=== PATIENT | male | born 2000 | race Two or more races ===

== ENCOUNTER 2020-06-19 10:39 | Outpatient (REF) | payer OTHER, SELFPAY | END 2020-06-19 10:40 | disposition home or self-care (01) | LOC: HO.LAB 10:39 | PROVIDERS: Visit Provider Internal Medicine | DX: Z20.828 Contact with and (suspected) exposure to other viral communicable diseases (principal) | CPT/HCPCS: 87635 ==

== ENCOUNTER 2020-07-17 17:26 | Outpatient (REF) | payer OTHER, SELFPAY | END 2020-07-17 17:27 | disposition home or self-care (01) | LOC: HO.LAB 17:26 | PROVIDERS: Visit Provider Internal Medicine | DX: Z20.828 Contact with and (suspected) exposure to other viral communicable diseases (principal) | CPT/HCPCS: C9803; U0003 ==

== ENCOUNTER 2020-07-31 14:23 | Emergency (ER) | payer OTHER, SELFPAY ==
--- NOTE | 2020-07-31 14:56 | PC.NURSE ---
pt not present in waiting room when called for triage
== END 2020-07-31 15:44 | disposition left against medical advice (07) ==
PROVIDERS: Emergency Provider Emergency Medicine
DX: R11.2 Nausea with vomiting, unspecified (principal)
CPT/HCPCS: 99281

== ENCOUNTER 2020-07-31 21:33 | Emergency (ER) | payer OTHER, SELFPAY ==
[2020-07-31 21:34] VITALS: BP 126/68; PULSE 84; RESP 16; TEMP 37; O2SAT 99; BMI 20.9
[2020-07-31 22:51] VITALS: BP 93/56; PULSE 65; RESP 16; TEMP 36.7; O2SAT 100
--- NOTE | 2020-07-31 23:20 | ED.GENADULT ---
HPI - General Adult General Chief complaint: Abdominal Pain Stated complaint: Abdominal pain Time Seen by Provider: 07/31/20 22:22 Source: patient Mode of arrival: ambulatory Limitations: no limitations History of Present Illness HPI narrative: patient comes to emergency room complaining of 3 weeks of vomiting. Patient states he is unable to tolerate p.o.. Patient states 3 weeks ago he tested positive for COVID. patient states that he was retested for COVID a few weeks later and he was negative for COVID. patient states that some point he did have abdominal pain within the last 3 weeks, however today he has not had any abdominal pain at all. Patient denies fever, no diarrhea. MD complaint: vomiting Related Data Previous Rx's Medication Instructions Recorded hyoscyamine sulfate 0.25 mg PO QID PRN #7 tab 08/01/20 ondansetron HCl [Zofran] 4 mg PO Q8H PRN #14 tab 08/01/20 Allergies Allergy/AdvReac Type Severity Reaction Status Date / Time No Known Allergies Allergy Unverified 05/11/20 17:45 Review of Systems Review of Systems: Constitutional : No Weight loss, No Fever, No Chills, No Night Sweats, No Fatigue, No Malaise ENT/Mouth : No Hearing loss, No Ear Pain, No Nasal Congestion, No Sinus Pain, No Hoarseness, No sore throat, No Rhinorrhea, No Swallowing Difficulty Eyes: No Eye Pain, No Swelling, No Redness, No Foreign Body, No Discharge, No Vision Changes Cardiovascular : No Chest Pain, No SOB, No Dyspnea on Exertion, No Orthopnea, No Edema, No Palpitations Respiratory : No Cough, No Sputum, No Wheezing, No Smoke Exposure, No Dyspnea Gastrointestinal : patient complaining of nausea and vomiting, No Diarrhea, No Constipation, No abdominal Pain, No Hematochezia, No Melena Genitourinary : no irregular bleeding, No Dysuria, No Urinary Frequency, No Hematuria, No Urinary Incontinence, No Urgency, No Flank Pain, No Urinary Flow Changes, No Hesitancy Musculoskeletal : No joint pain, No Myalgias, No Joint Swelling Skin : No Skin Lesions, No rash Neuro : No Weakness, No Numbness, No Paresthesias, No Loss of Consciousness, No Dizziness, No Headache Psych : No Anxiety/Panic, No Depression, No SI/HI/AH/VH, No Social Issues, Heme/Lymph: No Bruising, No Bleeding,No Lymphadenopathy Endocrine : No Polyuria, No Polydipsia, No Temperature Intolerance [facility] Past Medical History Medical History (Updated 08/01/20 @ 00:29 by Loraine Araya MD) No known health problems Social History Social History Alcohol intake: never Smoked in Last 30 Days: No Use of substances other than those prescribed or required for medical reasons: Yes Substance Use Type: Marijuana Substance Use Frequency: Daily Last Used Substance: Just Prior to Admission Any prior treatment program specific to substance use: No Advance Directives: No Advance Directives Information Provided: Yes Physical Exam Vital Signs: Vital Signs: Last Vital Signs Temp 98.0 F 07/31/20 22:51 Pulse 70 08/01/20 00:00 Resp 16 08/01/20 00:00 BP 120/61 08/01/20 00:00 Pulse Ox 99 08/01/20 00:00 Body Mass Index 20.9 Appearance: Alert. Oriented X3. No acute distress. Eyes: Pupils equal, round and reactive to light. ENT: Pharynx normal. Neck: Normal inspection. Neck supple. No lymph nodes noted. No crepitus CVS: Normal heart rate and rhythm. Pulses normal. Normal S1 and S2 Respiratory: No respiratory distress. Breath sounds normal. No Wheezing. No rales Abdomen: Soft and nontender. No rigidity. No distention. good BS x4 Skin: Skin warm and dry. Normal skin color. Normal skin turgor. Extremities: No lower extremity edema. No lower extremity edema. No Lacerations. No Rash Neuro: Oriented X 3. No motor deficit. No sensory deficit. Moving all extermities. No slurred speech. Course Course Course Narrative: patient's physical exam is within normal limits, patient looks well appearing, not having any nausea or actively vomiting at this time, no abdominal pain. I discussed the labs with the patient, patient will be discharged with nausea medication. on discharge physical exam patient is well-appearing, no abdominal pain, no tenderness, states that he does not need to urinate at this time and does not want to wait for the urine sample. Patient states he feels overall better with IV fluids and Zofran. Medical Decision Making Lab Data Result diagrams: 07/31/20 23:39 07/31/20 23:39 Labs: Lab Results 07/31/20 07/31/20 07/31/20 Range/Units 23:39 23:39 23:39 WBC 8.8 (4.8-10.8) X10*3/uL RBC 4.31 L (4.60-5.80) X10*6/uL Hgb 12.8 L (14.0-18.0) g/dl Hct 38.3 L (42-52) % MCV 88.9 (80-98) fL MCH 29.7 (27.0-33.0) pg MCHC 33.4 (31.0-36.0) g/dl RDW 12.2 (11.0-16.0) % Plt Count 182 (160-400) X10*3/uL MPV 11.1 (9.4-12.4) fL Immature Gran % (Auto) 0.1 (0.0-0.4) % Neut % (Auto) 47.9 (45-73) % Lymph % (Auto) 38.7 (20-40) % [place] % (Auto) 9.4 (2-11) % Eos % (Auto) 3.3 (0-4) % Baso % (Auto) 0.6 (0-2) % Lymph # (Auto) 3.4 (1.2-4.9) X10*3/uL [place] # (Auto) 0.8 (0.1-1.2) X10*3/uL Eos # (Auto) 0.3 (0.0-0.4) X10*3/uL Baso # (Auto) 0.1 (0.0-0.2) X10*3/uL Abs Immat Gran (auto) 0.01 (0.00-0.03) X10*3/uL Absolute Neuts (auto) 4.2 (2.0-8.3) X10*3/uL Absolute Nucleated RBC 0.000 (0.0-0.012) X10*3/uL Nucleated RBC % (auto) 0.0 (0.0-0.2) /100WBC Sodium 139 (135-145) mmol/L Potassium 4.1 (3.3-5.1) mmol/l Chloride 104 (96-108) mmol/L Carbon Dioxide 25 (22-29) mmol/L Anion Gap 14 (12-20) BUN 16 (9-16) mg/dL Creatinine 0.82 (0.5-1.4) mg/dL Estim Creat Clear Calc 117.8 Estimated GFR > 60 Random Glucose 103 (60-115) mg/dL Calcium 9.2 (8.4-10.2) mg/dL Total Bilirubin 0.2 (0.0-1.0) mg/dL Direct Bilirubin < 0.2 (0.0-0.5) mg/dL AST 36 (5-37) U/L ALT 40 (0-40) U/L Alkaline Phosphatase 78 (39-117) U/L Total Protein 6.8 (6.5-8.0) g/dL Albumin 4.2 (3.5-5.0) g/dL Lipase 17 (8-78) U/L Discharge Plan Discharge Clinical Impression: Vomiting Patient Disposition: Home, Self-Care Instructions: Acute Nausea and Vomiting (ED) Additional Instructions: Please follow-up with your primary care physician tomorrow. If you have any worsening or new symptoms, please return to the emergency room or call 911 Prescriptions: New ondansetron HCl [Zofran] 4 mg tablet 4 mg PO Q8H PRN (Reason: nausea and vomiting) Qty: 14 RF: 0 hyoscyamine sulfate 0.125 mg tablet 0.25 mg PO QID PRN (Reason: dyspepsia) Qty: 7 RF: 0
[2020-07-31] MEDS: 0.9 % Sodium Chloride 1,000 ML 999 ML IVCONT (23:41)
[2020-07-31] MEDS: ondansetron HCL 4 MG/2 ML VIAL IVPUSH (23:44)
[2020-07-31 23:47] LABS: Basophils Absolute Auto 0.1 X10*3/uL (0.0-0.2); Basophils Percent Auto 0.6 % (0-2); Eosinophils Absolute Auto 0.3 X10*3/uL (0.0-0.4); Eosinophils Percent Auto 3.3 % (0-4); Hematocrit 38.3 % (42-52); Hemoglobin 12.8 g/dl (14.0-18.0); Imm Gran Abs Auto 0.01 X10*3/uL (0.00-0.03); Imm Gran Pct Auto 0.1 % (0.0-0.4); Lymphocytes Absolute Auto 3.4 X10*3/uL (1.2-4.9); Lymphocytes Percent Auto 38.7 % (20-40); MANUAL DIFF FLAG NO; Mean Corpuscular HGB Conc 33.4 g/dl (31.0-36.0); Mean Corpuscular Hemoglobin 29.7 pg (27.0-33.0); Mean Corpuscular Volume 88.9 fL (80-98); Mean Platelet Volume 11.1 fL (9.4-12.4); Monocytes Absolute Auto 0.8 X10*3/uL (0.1-1.2); Monocytes Percent Auto 9.4 % (2-11); Neutrophils Absolute Auto 4.2 X10*3/uL (2.0-8.3); Neutrophils Percent Auto 47.9 % (45-73); Platelet Count 182 X10*3/uL (160-400); Red Blood Count 4.31 X10*6/uL (4.60-5.80); Red Cell Distribution Width 12.2 % (11.0-16.0); White Blood Count 8.8 X10*3/uL (4.8-10.8)
[2020-08-01] VITALS: BP 120/61; PULSE 70; RESP 16; O2SAT 99
--- NOTE | 2020-08-01 00:07 | PC.NURSE ---
PT STATES HE HAS NO PAIN OR N/V AT THIS TIME. PT STATES THE NAUSEA COMES IN WAVES.
[2020-08-01 00:08] LABS: Lipase 17 U/L (8-78)
[2020-08-01 00:11] LABS: Alanine Aminotransferase 40 U/L (0-40); Albumin Level 4.2 g/dL (3.5-5.0); Alkaline Phosphatase 78 U/L (39-117); Anion Gap 14 (12-20); Aspartate Amino Transferase 36 U/L (5-37); Bilirubin Direct < 0.2 mg/dL (0.0-0.5); Bilirubin Total 0.2 mg/dL (0.0-1.0); Blood Urea Nitrogen 16 mg/dL (9-16); Calcium 9.2 mg/dL (8.4-10.2); Carbon Dioxide 25 mmol/L (22-29); Chloride 104 mmol/L (96-108); Creatinine Clr Calc Pharmacy 117.8; Estimated Glomerular Filt Rate > 60; Glucose Random 103 mg/dL (60-115); Potassium 4.1 mmol/l (3.3-5.1); Sodium 139 mmol/L (135-145); Total Protein 6.8 g/dL (6.5-8.0)
== END 2020-08-01 01:19 | disposition home or self-care (01) ==
PROVIDERS: Emergency Provider Emergency Medicine
DX: R11.10 Vomiting, unspecified (principal)
CPT/HCPCS: 36415; 80048; 80076; 83690; 85025; 96361; 96374; 96375; 96376; 99284; J2405

== ENCOUNTER 2020-09-11 13:06 | Outpatient (REF) | payer OTHER, SELFPAY | END 2020-09-11 13:07 | disposition home or self-care (01) | LOC: HO.LAB 13:06 | PROVIDERS: Visit Provider Internal Medicine | DX: Z20.822 Contact with and (suspected) exposure to COVID-19 (principal) | CPT/HCPCS: 36415; C9803; U0003 ==

== ENCOUNTER 2020-10-04 15:38 | Outpatient (REF) | payer OTHER, SELFPAY | END 2020-10-04 15:39 | disposition home or self-care (01) | LOC: HO.LAB 15:38 | PROVIDERS: Visit Provider Internal Medicine | DX: Z20.822 Contact with and (suspected) exposure to COVID-19 (principal) | CPT/HCPCS: 36415; C9803; U0003; U0005 ==

== ENCOUNTER 2020-10-28 21:45 | Emergency (ER) | payer OTHER, SELFPAY ==
--- NOTE | 2020-10-28 22:18 | ED_ITS ---
HPI - General Adult General Chief complaint: Nausea/Vomiting/Diarrhea Stated complaint: DEHYDRATION Time Seen by Provider: 10/28/20 22:18 Source: patient Mode of arrival: ambulatory Limitations: no limitations History of Present Illness HPI narrative: Patient history of substance abuse was using oxycodone now is on Suboxone since started Suboxone patient been nauseated vomited 3 times today no active vomiting in the ER no suicidal ideation no significant depression no significant abdominal pain no fever or chills no diarrhea Onset (ago): day(s) (2) Related Data Previous Rx's Medication Instructions Recorded hyoscyamine sulfate 0.25 mg PO QID PRN #7 tab 08/01/20 ondansetron HCl [Zofran] 4 mg PO Q8H PRN #14 tab 08/01/20 Allergies Allergy/AdvReac Type Severity Reaction Status Date / Time No Known Allergies Allergy Verified 10/28/20 22:26 Review of Systems Review of Systems: Yes all other systems are reviewed and are negative PMFSH Past Medical History Medical History No known health problems Opiate addiction Social History Social History Alcohol intake: never Substance Use Type: Marijuana Advance Directives: No Physical Exam Vital Signs: Vital Signs: Last Vital Signs Temp 98.3 F 10/28/20 22:26 Pulse 98 10/28/20 22:26 Resp 18 10/28/20 22:26 BP 117/90 H 10/28/20 22:26 Pulse Ox 98 10/28/20 22:26 Body Mass Index 18.7 Appearance: Alert. Oriented X3. No acute distress. Anxious no active vomiting Eyes: Pupils equal, round and reactive to light. ENT: Pharynx normal. Neck: Normal inspection. Neck supple. CVS: Normal heart rate and rhythm. Pulses normal. Respiratory: No respiratory distress. Breath sounds normal. Abdomen: Soft mild epigastric tenderness Bowel sounds are present, no mass palpable, no CVA tenderness Skin: Skin warm and dry. Normal skin color. Normal skin turgor. Extremities: No lower extremity edema. Neuro: Oriented X 3. No motor deficit. No sensory deficit. Medical Decision Making [facility] Narrative Medical decision making narrative: Patient with history of substance abuse on Suboxone complaining nausea and vomiting no active vomiting in the ER patient had p.o. fluids without significant discomfort will give him Jose Rodriges advised to follow-up with PCP if problem continues Discharge Plan Discharge Clinical Impression: Vomiting Qualifiers: Vomiting type: unspecified Vomiting Intractability: non-intractable Nausea presence: with nausea Qualified Code(s): R11.2 - Nausea with vomiting, unspecif ied Patient Disposition: Home, Self-Care Instructions: Acute Nausea and Vomiting (ED) Additional Instructions: Drink plenty of fluids and follow up with [facility] Prescriptions: No Action ondansetron HCl [Zofran] 4 mg tablet 4 mg PO Q8H PRN (Reason: nausea and vomiting) Qty: 14 RF: 0 hyoscyamine sulfate 0.125 mg tablet 0.25 mg PO QID PRN (Reason: dyspepsia) Qty: 7 RF: 0
[2020-10-28 22:26] VITALS: BP 117/90; PULSE 98; RESP 18; TEMP 36.8; O2SAT 98; BMI 18.7
[2020-10-28] MEDS: Omeprazole 40 MG CAPSULE.DR PO (23:38)
[2020-10-28] MEDS: Magnesium Hydrox/Alum Hydrox 30 ML ORAL.SUSP PO (23:38)
== END 2020-10-29 00:17 | disposition home or self-care (01) ==
PROVIDERS: Emergency Provider Internal Medicine
DX: E86.0 Dehydration (principal); R11.2 Nausea with vomiting, unspecified; Z79.899 Other long term (current) drug therapy
CPT/HCPCS: 99284

== ENCOUNTER → 2020-10-30 11:53 | Outpatient (BNVA) | payer OTHER, SELFPAY | PROVIDERS: Visit Provider Internal Medicine | DX: F11.99 Opioid use, unspecified with unspecified opioid-induced disorder (principal); Z79.899 Other long term (current) drug therapy | CPT/HCPCS: 80305; 99202 ==

== ENCOUNTER → 2020-11-07 13:13 | Outpatient (BNVA) | payer OTHER, SELFPAY | PROVIDERS: Visit Provider Internal Medicine | DX: F11.99 Opioid use, unspecified with unspecified opioid-induced disorder (principal); Z79.899 Other long term (current) drug therapy | CPT/HCPCS: 80305; 99211 ==

== ENCOUNTER → 2020-11-14 13:16 | Outpatient (BNVA) | payer OTHER, SELFPAY | PROVIDERS: Visit Provider Internal Medicine | DX: Z51.81 Encounter for therapeutic drug level monitoring (principal) | CPT/HCPCS: 80305; 99211 ==

== ENCOUNTER → 2020-11-21 14:02 | Outpatient (BNVA) | payer OTHER, SELFPAY | PROVIDERS: Visit Provider Internal Medicine | DX: F11.99 Opioid use, unspecified with unspecified opioid-induced disorder (principal) | CPT/HCPCS: 99211 ==

== ENCOUNTER → 2020-11-29 11:18 | Outpatient (BNVA) | payer OTHER, SELFPAY | PROVIDERS: Visit Provider Internal Medicine | DX: Z51.81 Encounter for therapeutic drug level monitoring (principal); Z79.899 Other long term (current) drug therapy | CPT/HCPCS: 80305; 99211 ==

== ENCOUNTER 2021-09-21 23:16 | Emergency (ER) | payer OTHER, SELFPAY ==
[2021-09-21 23:19] VITALS: BP 140/96; PULSE 88; RESP 20; TEMP 36.6; O2SAT 99; BMI 21.7
--- NOTE | 2021-09-21 23:21 | ED_ITS ---
HPI - Overdose General Chief Complaint: Overdose Stated Complaint: OD Time Seen by Provider: 09/21/21 23:19 Source: other (none) Mode of arrival: other (dropped off from a car then car left) Limitations: other (unresponsive) History of Present Illness MD complaint: accidental overdose Onset (ago): unknown Timing confirmed by: other (friend) Context: Accidental Overdose: wanted to get high and other (?oxycodone, ETOH) Treatments Prior to Arrival: none Related Data Previous Rx's Medication Instructions Recorded hyoscyamine sulfate 0.125 mg tablet 0.25 mg PO QID PRN #7 tab 08/01/20 ondansetron HCl 4 mg tablet 4 mg PO Q8H PRN #14 tab 08/01/20 (Zofran) buprenorphine 8 mg-naloxone 2 mg 2 film SUBLINGUAL DAILY 14 Days 11/29/20 sublingual film (Suboxone) #28 ea Allergies Allergy/AdvReac Type Severity Reaction Status Date / Time No Known Allergies Allergy Verified 09/21/21 23:24 Review of Systems Verdana 4l Review of Systems: Verdana 4d ROS unable to be obtained Verdana 4d due to patient being unresponsive Verdana 4d [facility] Past Medical History Attestation statement: The following information was validated with the patient. Medical History No known health problems Opiate addiction Opioid use disorder Social History Social History Alcohol intake: never Substance Use Type: Opiates Physical Exam Verdana 4l Vital Signs: Verdana 4d Verdana 4d Vital Signs: Verdana 4d Verdana 4Bd Last Vital Signs Verdana 4d Mems Engineer New 4d Mems Engineer New 4d Temp 97.8 F 09/21/21 23:19 Mems Engineer New 4d Pulse 81 09/22/21 00:50 Mems Engineer New 4d Resp 15 09/22/21 00:50 BP 129/90 H 09/22/21 00:50 Pulse Ox 99 09/22/21 00:50 Oxygen Flow Rate 15 09/21/21 23:19 BMI result Body Mass Index 21.7 Appearance: Pale diaphoretic apneic cyanotic unresponsive Eyes: pinpoint pupils ENT: depressed gag reflex Neck: Normal inspection. Neck supple. CVS: tachcyardic heart rate and rhythm. Pulses normal. Respiratory: apneic Abdomen: Soft and nontender. Skin: Skin cool and cyanotic pale skin color. Normal skin turgor. Extremities: No lower extremity edema. No calf ttp Neuro: unresponsive, no response to painful stimuli Course Course Course Narrative: awake alert GCS 15, observed for [address] to stay no longer [place] given narcan to go home with MDM - Overdose MDM Narrative Medical decision making narrative: 21 yo male with opiate abuse dropped off by friends in car who screamed from [employer] he overdose then left - brought from [facility] on stretcher he was given 8mg narcan IN I bagged him for 3 minutes until he pinked up and woke up initial O2 reading on the monitor was 98%, given 4mg IV zofran when he woke up. POC normal. He admits to getting high no SI. Hx of overdose in past. Immediately wanted to leave when he woke up. He is agitated with us. Mom waiting for the patient in triage. He is refusing all assistance at this time. He is agreeing to stay for observation but repeatedly stating he can leave at any time and that he is not in assisted. Critical Care Time Critical Care Time Critical Care Time: Yes Total Critical Care Time: 35 Attestation: IN narcan, repeat assessments, O2 supplementation, airway rescue I attest to this time spent taking care of the patient Discharge Plan Discharge Clinical Impression: Drug overdose Patient Disposition: Home, Self-Care Instructions: Adult Overdose (ED) Additional Instructions: return to ED for any worsening symptoms or concerns you refused all assistance in the emergency department for your overdose, you required 8mg of narcan which is two doses of rescue narcan Prescriptions: No Action buprenorphine-naloxone [Suboxone] 8-2 mg film 2 film sublingual DAILY 14 Days Qty: 28 0RF Rx Instructions: place 1 strip/tab under (each) side of tongue ondansetron HCl [Zofran] 4 mg tablet 4 mg PO Q8H PRN (Reason: nausea and vomiting) Qty: 14 0RF hyoscyamine sulfate 0.125 mg tablet 0.25 mg PO QID PRN (Reason: dyspepsia) Qty: 7 0RF
[2021-09-21] MEDS: Naloxone HCl Nasal 4 MG SPRAY NOSTRILALT ×2 (23:25)
[2021-09-21] MEDS: ondansetron HCL 4 MG/2 ML VIAL IVPUSH (23:25)
[2021-09-22 00:40] VITALS: BP 129/93; PULSE 90; RESP 18; O2SAT 97
--- NOTE | 2021-09-22 00:41 | PC.NURSE ---
Pt awake on stretcher in NAD, breathing with ease on RA, VSS. Pt speaking in complete clear sentences
[2021-09-22 00:50] VITALS: BP 129/90; PULSE 81; RESP 15; O2SAT 99
[2021-09-22] MEDS: Naloxone HCl Nasal TAKE HOME 4 MG SPRAY NOSTRILALT (00:59)
[2021-09-25 11:15] LABS: Glucose, Whole Blood 158 mg/dL (60-115)
== END 2021-09-22 01:14 | disposition home or self-care (01) ==
LOC: HO.ED 09-22 01:12
PROVIDERS: Emergency Provider Emergency Medicine
DX: T40.2X1A Poisoning by other opioids, accidental (unintentional), initial encounter (principal); R40.4 Transient alteration of awareness; Y92.810 Car as the place of occurrence of the external cause; F11.20 Opioid dependence, uncomplicated
CPT/HCPCS: 82947; 96374; 99283; 99291; J2405

== ENCOUNTER → 2022-06-14 11:46 | Outpatient (BNVA) | payer OTHER, SELFPAY | PROVIDERS: Visit Provider Nurse Practitioner Psychiatric/Mental Health | DX: F11.20 Opioid dependence, uncomplicated (principal) | CPT/HCPCS: 99212 ==

== ENCOUNTER 2023-01-12 14:51 | Emergency (ER) | payer MEDICAID, SELFPAY ==
--- NOTE | ~2023-01-12 | CT_ITS ---
EXAMINATION: CT ABDOMEN AND PELVIS WITH CONTRAST CLINICAL INFORMATION: 22-year-old male with right lower quadrant abdominal pain, rule out appendicitis COMPARISON: None available. TECHNIQUE: Multidetector volumetric images were obtained from the superior aspect of the liver through the pubic symphysis following administration 85 mL of Omnipaque 350 intravenous contrast. Sagittal and coronal reformatted images were obtained on the technologist's workstation. Oral contrast: No This CT examination was performed using dose optimization techniques as appropriate, variously including the following: *Automated exposure control *Adjustment of mA and/or kV according to patient size (this includes techniques or standardized protocols for targeted exams where dose is matched to indication/reason for exam; i.e. extremities or head) *Use of iterative reconstruction technique DLP: 382 mGy-cm FINDINGS: LUNG BASES: The visualized lung bases are unremarkable. LIVER, GALLBLADDER, AND BILIARY TREE: The liver is normal in size, shape, and attenuation. No focal hepatic lesion or biliary ductal dilatation is present. The gallbladder is unremarkable with no evidence of radiopaque gallstones, gallbladder wall thickening, or obvious pericholecystic inflammatory changes. PANCREAS: Unremarkable. SPLEEN: Unremarkable. ADRENAL GLANDS: Unremarkable. KIDNEYS AND URETERS: Right kidney is unremarkable. Left kidney demonstrate simple 3.4 cm cyst in the upper pole BLADDER: Unremarkable. GASTROINTESTINAL TRACT: The small and large bowel are unremarkable. The appendix is not clearly identified but there are no secondary signs of appendicitis ABDOMINAL WALL: No significant hernia is appreciated. LYMPH NODES: Normal. VASCULAR: Unremarkable. PELVIC VISCERA: Unremarkable. OSSEOUS STRUCTURES: Unremarkable. CT/CT abdomen pelvis w IV con IMPRESSION: No explanation for abdominal pain. No evidence of appendicitis. Simple cyst in the left kidney. Fleischner guidelines were followed.
[2023-01-12 15:18] VITALS: BP 123/77; BP 124/78; PULSE 100; PULSE 91; RESP 20; TEMP 36.6; O2SAT 100; O2SAT 98; BMI 26.0
--- NOTE | 2023-01-12 15:37 | PC.NURSE ---
Pt reporting he believes he has food poisoning, that his mom was her last night with the same thing, he believes it is from the burger he ate. Vomiting x1 day. Labs Obtained, IV placed. Awaiting provider at this time
[2023-01-12 15:38] LABS: Basophils Percent Auto 0.2 % (0-2); Eosinophils Percent Auto 0.2 % (0-4); Hematocrit 41.8 % (42.0-52.0); Hemoglobin 14.1 g/dl (14.0-18.0); Imm Gran Abs Auto 0.05 X10*3/uL (0.00-0.03); Imm Gran Pct Auto 0.3 % (0.0-0.4); Lymphocytes Absolute Auto 0.9 X10*3/uL (1.2-4.9); Lymphocytes Percent Auto 4.8 % (20-40); MANUAL DIFF FLAG SCAN; Mean Corpuscular HGB Conc 33.7 g/dl (31.0-36.0); Mean Corpuscular Hemoglobin 28.4 pg (27.0-33.0); Mean Corpuscular Volume 84.1 fL (80.0-98.0); Mean Platelet Volume 10.1 fL (9.4-12.4); Monocytes Absolute Auto 0.8 X10*3/uL (0.1-1.2); Monocytes Percent Auto 4.2 % (2-11); Neutrophils Absolute Auto 16.4 x10*3/uL (2.0-8.3); Neutrophils Percent Auto 90.3 % (45-73); Platelet Count 267 X10*3/uL (160-400); Red Blood Count 4.97 X10*6/uL (4.60-5.80); Red Cell Distribution Width 12.5 % (11.0-16.0); SCAN SMEAR FLAG 1; White Blood Count 18.2 X10*3/uL (4.8-10.8)
[2023-01-12 15:58] LABS: Alanine Aminotransferase 130 U/L (0-40); Albumin Level 4.5 g/dL (3.5-5.0); Alkaline Phosphatase 122 U/L (39-117); Anion Gap 14 (12-20); Aspartate Amino Transferase 54 U/L (5-37); Bilirubin Total 0.6 mg/dL (0.0-1.0); Blood Urea Nitrogen 18 mg/dL (9-16); Calcium 9.9 mg/dL (8.4-10.2); Carbon Dioxide 28 mmol/L (22-29); Chloride 102 mmol/L (96-108); Creatinine Clr Calc Pharmacy 125.3; Estimated Glomerular Filt Rate > 60; Glucose Random 117 mg/dL (60-115); Lipase 11 U/L (8-78); Potassium 4.2 mmol/L (3.3-5.1); SLIDE REVIEW VERIFIED; Sodium 140 mmol/L (135-145); Total Protein 7.6 g/dL (6.5-8.0)
--- NOTE | 2023-01-12 16:15 | ED.NAVMDI ---
HPI - Nausea/Vomiting/Diarrhea General Chief complaint: General Medical Stated complaint: NAUSEA,WEAKNESS PER EMS Time Seen by Provider: 01/12/23 16:14 Source: patient Mode of arrival: ambulatory Limitations: no limitations History of Present Illness HPI Narrative: Patient had burger at 21:00 last night went to bed was normal woke up in the morning with mid abdominal pain and vomiting , about 4-5 times, no diarrhea, pain is localized in mid abdomen with no radiation patient feels hungry no fever no chills patient mother had same food and she is also sick with same symptoms Related Data Previous Rx's Medication Instructions Recorded ondansetron 4 mg disintegrating 4 mg PO Q6-8H PRN nausea and 01/12/23 tablet vomiting #7 tabs Allergies Allergy/AdvReac Type Severity Reaction Status Date / Time No Known Allergies Allergy Verified 01/12/23 15:21 Review of Systems Review of Systems: Yes all other systems are reviewed and are negative [facility] Social History Social History Alcohol intake: never Smoked in Last 30 Days: No Use of substances other than those prescribed or required for medical reasons: Yes Substance Use Type: Marijuana Substance Use Frequency: Chronic Longstanding Advance Directives: No Advance Directives Information Provided: No Physical Exam Vital Signs: Vital Signs: Last Vital Signs Temp 97.9 F 01/12/23 15:18 Pulse 100 01/12/23 15:18 Resp 20 01/12/23 15:18 BP 123/77 01/12/23 15:18 Pulse Ox 98 01/12/23 15:18 O2 Del Method Room Air 01/12/23 15:18 BMI result Body Mass Index 26.0 Appearance: Alert. Oriented X3. No acute distress. Eyes: PERRLA, No Nystagmus ENT: Pharynx normal. Oral Mucosa dry Neck: Normal inspection. Neck supple. CVS: Normal heart rate and rhythm. Pulses normal. Respiratory: No respiratory distress. Equal air entry bilateral, no wheezing/rales/rhonchi Abdomen: Soft, tenderness at mid abdomen no tenderness in right lower quadrant. Bowel sounds are present, no mass palpable, no CVA tenderness Skin: Skin warm and dry. Normal skin color. Normal skin turgor. Extremities: No lower extremity edema. No calf tenderness Neuro: Oriented X 3. No motor deficit. No sensory deficit.No cerebellar signs , cranial nerves II-XII intact Medications Administered Discontinued Medications Generic Name Dose Route Start Last Admin Trade Name Kalen PRN Reason Stop Dose Admin Sodium Chloride 1,000 mls @ 999 mls/hr 01/12/23 16:44 01/12/23 18:11 Ns IV 01/12/23 17:44 Infused .Q1H1M ONE Infusion Iohexol 100 ml 01/12/23 17:05 01/12/23 17:06 Iohexol 350 Mg/Ml 100 Ml Infus..Btl IV 01/12/23 17:06 85 ml ONCE ONE Administration Ondansetron HCl 4 mg 01/12/23 16:44 01/12/23 16:55 Ondansetron Hcl 4 Mg/2 Ml Vial IVPUSH 01/12/23 16:45 4 mg ONCE ONE Administration Medical Decision Making Medical Decision Making [facility] Narrative: Patient has vomiting with mid abdominal pain likely food poisoning had leukocytosis will do CT scan to rule out appendicitis CT scan negative for acute pathology patient feeling much better now after IV fluids taking p.o. fluids will discharge patient home Differential Diagnosis Acute appendicitis/gastroenteritis Lab Data [facility] Lab Attestation statement: I reviewed the patient's lab results. 01/12/23 15:28 01/12/23 15:28 Labs: Lab Results 01/12/23 01/12/23 Range/Units 15:28 15:28 WBC 18.2 H (4.8-10.8) X10*3/uL RBC 4.97 (4.60-5.80) X10*6/uL Hgb 14.1 (14.0-18.0) g/dl Hct 41.8 L (42.0-52.0) % MCV 84.1 (80.0-98.0) fL MCH 28.4 (27.0-33.0) pg MCHC 33.7 (31.0-36.0) g/dl RDW 12.5 (11.0-16.0) % Plt Count 267 (160-400) X10*3/uL MPV 10.1 (9.4-12.4) fL Immature Gran % (Auto) 0.3 (0.0-0.4) % Neut % (Auto) 90.3 H (45-73) % Lymph % (Auto) 4.8 L (20-40) % [place] % (Auto) 4.2 (2-11) % Eos % (Auto) 0.2 (0-4) % Baso % (Auto) 0.2 (0-2) % Lymph # (Auto) 0.9 L (1.2-4.9) X10*3/uL [place] # (Auto) 0.8 (0.1-1.2) X10*3/uL Eos # (Auto) 0.0 (0.0-0.4) X10*3/uL Baso # (Auto) 0.0 (0.0-0.2) X10*3/uL Abs Immat Gran (auto) 0.05 H (0.00-0.03) X10*3/uL Absolute Neuts (auto) 16.4 H (2.0-8.3) x10*3/uL Absolute Nucleated RBC 0.000 (0.0-0.012) X10*3/uL Nucleated RBC % (auto) 0.0 (0.0-0.2) /100WBC Smear Tech's Comments VERIFIED Sodium 140 (135-145) mmol/L Potassium 4.2 (3.3-5.1) mmol/L Chloride 102 (96-108) mmol/L Carbon Dioxide 28 (22-29) mmol/L Anion Gap 14 (12-20) BUN 18 H (9-16) mg/dL Creatinine 0.82 (0.5-1.4) mg/dL Estim Creat Clear Calc 125.3 Estimated GFR > 60 Random Glucose 117 H (60-115) mg/dL Calcium 9.9 (8.4-10.2) mg/dL Total Bilirubin 0.6 (0.0-1.0) mg/dL AST 54 H (5-37) U/L ALT 130 H (0-40) U/L Alkaline Phosphatase 122 H (39-117) U/L Total Protein 7.6 (6.5-8.0) g/dL Albumin 4.5 (3.5-5.0) g/dL Lipase 11 (8-78) U/L Discharge Plan Discharge Clinical Impression: Acute gastroenteritis Patient Disposition: Home, Self-Care Instructions: Acute Nausea and Vomiting (ED) Additional Instructions: Drink plenty of fluids Meds for nausea/vomiting as prescribed Follow-up with PCP if not better Prescriptions: New ondansetron 4 mg tablet,disintegrating 4 mg PO Q6-8H PRN (Reason: nausea and vomiting) Qty: 7 0RF Interventions: ED Discharge Assessment Last Done: 01/12/23 19:22 Discharge Date/Time: 01/12/23 19:23
[2023-01-12] MEDS: ondansetron HCL 4 MG/2 ML VIAL IVPUSH (16:55)
[2023-01-12] MEDS: 0.9 % Sodium Chloride 1,000 ML 999 ML IV (16:56)
[2023-01-12] MEDS: iohexoL 350 MG/ML 100 ML INFUS..BTL IV (17:06)
== END 2023-01-12 19:23 | disposition home or self-care (01) ==
PROVIDERS: Emergency Provider Internal Medicine
DX: K52.9 Noninfective gastroenteritis and colitis, unspecified (principal); R11.2 Nausea with vomiting, unspecified; Z79.899 Other long term (current) drug therapy
CPT/HCPCS: 36415; 74177; 80053; 83690; 85025; 96361; 96374; 99284; J2405; Q9967

== ENCOUNTER 2023-03-02 10:24 | Emergency (ER) | payer MEDICAID, SELFPAY ==
[2023-03-02 10:34] VITALS: BP 126/91; PULSE 77; RESP 16; TEMP 36.9; O2SAT 99; BMI 25.8
--- NOTE | 2023-03-02 10:45 | ED.ABDPAIN ---
HPI - Abdominal Pain General Chief Complaint: Abdominal Pain Stated Complaint: Vomiting, sweating, weakness per EMS Time Seen by Provider: 03/02/23 10:36 Source: patient Mode of arrival: ambulatory Limitations: no limitations History of Present Illness HPI narrative: 22-year-old male came in for evaluation of nausea, vomiting, abdominal pain. Patient smokes marijuana daily woke up yesterday with nausea and vomiting with abdominal pain, this happen before several times if the patient does not eat before go to bed the night before, no diarrhea, passing normal flatus, unable to keep food or liquid down. Pain is diffuse to the whole abdomen mostly to the epigastric area, worsening by food no relieving factor. No history of intra-abdominal surgery. No fever, no chills. Related Data Previous Rx's Medication Instructions Recorded buprenorphine 8 mg-naloxone 2 mg 1 film sublingual DAILY #14 ea 06/14/22 sublingual film (Suboxone) naloxone 4 mg/actuation nasal 4 mg intranasal Q2M PRN opioid 06/14/22 spray (Narcan) overdose #2 ea ondansetron 4 mg disintegrating 4 mg PO Q6-8H PRN nausea and 01/12/23 tablet vomiting #7 tabs omeprazole 40 mg capsule,delayed 40 mg PO DAILY #14 caps 03/02/23 release ondansetron 4 mg disintegrating 4 mg PO Q8-12H PRN nausea and 03/02/23 tablet vomiting #7 tabs Allergies Allergy/AdvReac Type Severity Reaction Status Date / Time No Known Allergies Allergy Verified 01/13/23 08:01 Review of Systems Review of Systems All other systems are reviewed and are negative Constitutional: Reports as per HPI and Reports no additional constitutional complaints Eyes: Reports as per HPI and Reports no additional eye complaints Reports system reviewed and no additional complaints, except as documented Cardiovascular: Reports as per HPI and Reports no additional cardiovascular complaints Respiratory: Reports as per HPI and Reports no additional respiratory complaints Gastrointestinal: Reports as per HPI and Reports no additional gastrointestinal complaints Genitourinary: Reports no additional female genitourinary complaints Musculoskeletal: Reports no additional musculoskeletal complaints Skin/Breast: Reports system reviewed and no additional complaints, except as docu Psychiatric: Reports no additional psychiatric complaints Endocrine: Reports no additional endocrine complaints Hematologic/Lymphatic: Reports no additional hematologic/lymphatic complaints Allergic/Immunologic: Reports no additional allergic/immunologic complaints Reports system reviewed and no additional complaints, except as documented and Reports Abnormal speech present [facility] Past Medical History Medical History No known health problems Opiate addiction Opioid use disorder Social History Social History Alcohol intake: never Smoked in Last 30 Days: No Use of substances other than those prescribed or required for medical reasons: Yes Substance Use Type: Marijuana Substance Use Frequency: Daily Advance Directives: No Advance Directives Information Provided: No Physical Exam ED Vital Signs: Vital Signs - 24 hr 03/02/23 10:34 03/02/23 12:11 03/02/23 13:50 Temperature 98.5 F 98.3 F 98.3 F Pulse Rate 77 88 91 Respiratory Rate 16 21 H 16 Blood Pressure 126/91 H 128/70 120/71 Pulse Oximetry 99 98 Oxygen Delivery Method Room Air Room Air 03/02/23 13:52 03/02/23 14:00 Temperature 98.3 F 98.7 F Pulse Rate 77 100 Respiratory Rate 18 18 Blood Pressure 120/71 159/98 H Pulse Oximetry 98 98 Oxygen Delivery Method Room Air Room Air BMI result Body Mass Index 25.8 Vital signs have been reviewed as appeared to be correct. Blood pressure normal. Heart rate normal. Respiration rate normal. Temperature normal. Oxygen saturation normal. Appearance: Alert. Oriented X3. No acute distress. Head: Normal external exam. Normocephalic. Atraumatic. No Becerril signs noted. No raccoon eyes noted Eyes: PERRLA. EOMI. Conjunctiva and sclera normal. Eyelids normal. ENT: TM's Normal. Pharynx normal. Uvula midline. Moist mucous membranes. No trismus noted. No drooling noted. No muffled voice noted. Neck: Normal inspection. Neck supple. FROM. No adenopathy. Thyroid Normal. No meningeal signs. No neck mass noted. CVS: Normal heart rate and rhythm. Heart sound normal. No murmurs noted. Pulses normal throughout. Respiratory: No respiratory distress. Painless inspiration. Breath sounds normal. No wheezes/rales/rhonchi noted. Chest nontender. No accessory muscle usage noted or decreased air movement noted. Abdomen: Soft and nontender. Bowel sounds normal in all 4 quadrants. No distention noted. No organomegaly noted. No visible injury noted. Back: No CVA tenderness. Full range of motion noted. Skin: Skin warm and dry. Normal skin color. Normal skin turgor. No rashes/lesions/lacerations noted. Extremities: No lower extremity edema. Extremities exhibit normal range of motion. Extremities nontender. Neuro: Oriented X 3. Cranial nerve exam: II-XII are grossly intact No motor deficit. No sensory deficit. Reflexes normal. Course Course Course Narrative: 22-year-old male came in for intractable vomiting likely due to smoking marijuana, patient now feels better, able to tolerate p.o. intake, will discharge home on Zofran, Prilosec. Medical Decision Making Differential Diagnosis Differential Diagnoses: The differential diagnosis associated with the presentation includes (Colitis, diverticulitis, gastritis, gastroenteritis, electrolyte abnormalities, dehydration, severe anemia.) Admission/Observation Consideration of admission/observation: Escalation of care including admission/observation considered Lab Data MDM Lab Attestation statement: I reviewed the patient's lab results. 03/02/23 12:05 03/02/23 12:05 Labs: Lab Results 03/02/23 03/02/23 03/02/23 Range/Units 12:05 12:05 12:05 WBC 14.3 H (4.8-10.8) X10*3/uL RBC 5.29 (4.60-5.80) X10*6/uL Hgb 15.3 (14.0-18.0) g/dl Hct 45.2 (42.0-52.0) % MCV 85.4 (80.0-98.0) fL MCH 28.9 (27.0-33.0) pg MCHC 33.8 (31.0-36.0) g/dl RDW 12.5 (11.0-16.0) % Plt Count 284 (160-400) X10*3/uL MPV 10.3 (9.4-12.4) fL Immature Gran % (Auto) 0.2 (0.0-0.4) % Neut % (Auto) 86.0 H (45-73) % Lymph % (Auto) 10.0 L (20-40) % [place] % (Auto) 3.3 (2-11) % Eos % (Auto) 0.1 (0-4) % Baso % (Auto) 0.4 (0-2) % Lymph # (Auto) 1.4 (1.2-4.9) X10*3/uL [place] # (Auto) 0.5 (0.1-1.2) X10*3/uL Eos # (Auto) 0.0 (0.0-0.4) X10*3/uL Baso # (Auto) 0.1 (0.0-0.2) X10*3/uL Abs Immat Gran (auto) 0.03 (0.00-0.03) X10*3/uL Absolute Neuts (auto) 12.3 H (2.0-8.3) x10*3/uL Absolute Nucleated RBC 0.000 (0.0-0.012) X10*3/uL Nucleated RBC % (auto) 0.0 (0.0-0.2) /100WBC Sodium 138 138 (135-145) mmol/L Potassium 4.2 4.2 (3.3-5.1) mmol/L Chloride 102 102 (96-108) mmol/L Carbon Dioxide 27 25 (22-29) mmol/L Anion Gap 13 15 (12-20) BUN 19 H 18 H (9-16) mg/dL Creatinine 0.87 0.87 (0.5-1.4) mg/dL Estim Creat Clear Calc 118.1 118.1 Estimated GFR > 60 > 60 Random Glucose 103 104 (60-115) mg/dL Calcium 10.8 H D 10.8 H (8.4-10.2) mg/dL Total Bilirubin 0.6 (0.0-1.0) mg/dL Direct Bilirubin 0.2 (0.0-0.5) mg/dL AST 24 (5-37) U/L ALT 37 (0-40) U/L Alkaline Phosphatase 104 (39-117) U/L Total Protein 8.5 H (6.5-8.0) g/dL Albumin 4.9 (3.5-5.0) g/dL Lipase 7 L (8-78) U/L Independent Interpretation I performed an independent interpretation of an: CT Scan (Abdomen and pelvis: No acute intra-abdominal pathology.) Radiology Impression Discussion of test interpretation with radiology: I have reviewed the radiologist's reading. Medications Administered Discontinued Medications Generic Name Dose Route Start Last Admin Trade Name Freq PRN Reason Stop Dose Admin Famotidine 20 mg 03/02/23 10:42 03/02/23 12:06 Famotidine/Pf 20 Mg/2 Ml Vial IVPUSH 03/02/23 10:43 20 mg ONCE ONE Administration Sodium Chloride 1,000 mls @ 999 mls/hr 03/02/23 10:42 03/02/23 13:47 Ns IV 03/02/23 11:42 Infused .Q1H1M ONE Infusion Ketorolac Tromethamine 30 mg 03/02/23 10:45 03/02/23 12:06 Ketorolac Tromethamine 30 Mg/Ml Vial IVPUSH 03/02/23 10:46 30 mg ONCE ONE Administration Ondansetron HCl 4 mg 03/02/23 10:42 03/02/23 12:06 Ondansetron Hcl 4 Mg/2 Ml Vial IVPUSH 03/02/23 10:43 4 mg ONCE ONE Administration Ondansetron HCl 4 mg 03/02/23 14:39 03/02/23 14:44 Ondansetron Hcl 4 Mg/2 Ml Vial IVPUSH 03/02/23 14:40 4 mg ONCE ONE Administration Discharge Plan Discharge Clinical Impression: Acute vomiting, Cannabis abuse Patient Disposition: Home, Self-Care Instructions: Cannabis Abuse (ED) Additional Instructions: You are vomiting because using marijuana, to stop vomiting he needs to stop smoking marijuana. Start with clear food today avoid spicy and greasy food then advance as tolerated. Prescriptions: New ondansetron 4 mg tablet,disintegrating 4 mg PO Q8-12H PRN (Reason: nausea and vomiting) Qty: 7 0RF omeprazole 40 mg capsule,delayed release(DR/EC) 40 mg PO DAILY Qty: 14 0RF No Action ondansetron 4 mg tablet,disintegrating 4 mg PO Q6-8H PRN (Reason: nausea and vomiting) Qty: 7 0RF buprenorphine-naloxone [Suboxone] 8-2 mg film 1 film sublingual DAILY Qty: 14 0RF naloxone [Narcan] 4 mg/actuation spray,non-aerosol 4 mg intranasal Q2M PRN (Reason: opioid overdose) Qty: 2 0RF Rx Instructions: spray 1 dose into ONE nostril; alternate nostrils w each dose until help arrives
[2023-03-02 12:11] VITALS: BP 128/70; PULSE 88; RESP 21; TEMP 36.8; O2SAT 98
[2023-03-02 13:50] VITALS: BP 120/71; PULSE 91; RESP 16; TEMP 36.8
--- NOTE | 2023-03-02 13:51 | PC.NURSE ---
reports decrease in abdominal pain from 9 to 7. no vomiting. aox4. resting. fluids done
[2023-03-02 13:52] VITALS: BP 120/71; PULSE 77; RESP 18; TEMP 36.8; O2SAT 98
[2023-03-02 14:00] VITALS: BP 159/98; PULSE 100; RESP 18; TEMP 37.1; O2SAT 98
--- NOTE | 2023-03-02 14:47 | PC.NURSE ---
given zofran for nausea, given water/crackers- pt reports he would like to try to have them- md emolgy suggestion
== END 2023-03-02 16:02 | disposition home or self-care (01) ==
PROVIDERS: Emergency Provider Emergency Medicine
DX: R11.2 Nausea with vomiting, unspecified (principal); F12.19 Cannabis abuse with unspecified cannabis-induced disorder; R61 Generalized hyperhidrosis; R10.2 Pelvic and perineal pain; Z79.899 Other long term (current) drug therapy
CPT/HCPCS: 36415; 74176; 80048; 80076; 83690; 85025; 96361; 96374; 96375; 96376; 99284; J1885; J2405

== ENCOUNTER 2023-03-25 23:53 | Emergency (ER) | payer MEDICAID, SELFPAY ==
[2023-03-26] VITALS: BP 136/91; BP 142/96; PULSE 72; PULSE 96; RESP 14; TEMP 36.8; O2SAT 99; BMI 27.4
[2023-03-26 00:15] LABS: MANUAL DIFF FLAG NO
[2023-03-26 00:16] LABS: Basophils Percent Auto 0.3 % (0-2); Hemoglobin 15.3 g/dl (14.0-18.0); Imm Gran Abs Auto 0.05 X10*3/uL (0.00-0.03); Imm Gran Pct Auto 0.4 % (0.0-0.4); Lymphocytes Percent Auto 17.5 % (20-40); Mean Corpuscular HGB Conc 34.8 g/dl (31.0-36.0); Mean Corpuscular Volume 83.5 fL (80.0-98.0); Mean Platelet Volume 10.3 fL (9.4-12.4); Monocytes Absolute Auto 0.7 X10*3/uL (0.1-1.2); Monocytes Percent Auto 5.7 % (2-11); Neutrophils Absolute Auto 8.8 x10*3/uL (2.0-8.3); Neutrophils Percent Auto 76.1 % (45-73); Platelet Count 265 X10*3/uL (160-400); Red Blood Count 5.27 X10*6/uL (4.60-5.80); Red Cell Distribution Width 12.9 % (11.0-16.0); White Blood Count 11.5 X10*3/uL (4.8-10.8)
[2023-03-26 00:30] LABS: Alanine Aminotransferase 85 U/L (0-40); Alkaline Phosphatase 86 U/L (39-117); Anion Gap 19 (12-20); Aspartate Amino Transferase 33 U/L (5-37); Bilirubin Total 0.5 mg/dL (0.0-1.0); Blood Urea Nitrogen 24 mg/dL (9-16); Calcium 10.5 mg/dL (8.4-10.2); Carbon Dioxide 21 mmol/L (22-29); Chloride 102 mmol/L (96-108); Creatinine Clr Calc Pharmacy 137.4; Estimated Glomerular Filt Rate > 60; Glucose Random 124 mg/dL (60-115); IDNOW Serial# 6674DD1D; Lipase 6 U/L (8-78); Potassium 3.9 mmol/L (3.3-5.1); Sodium 138 mmol/L (135-145); Total Protein 8.6 g/dL (6.5-8.0)
[2023-03-26 00:31] LABS: COVID-19 Test Negative (Negative)
--- NOTE | 2023-03-26 00:40 | ED.NAVMDI ---
HPI - Nausea/Vomiting/Diarrhea General Chief complaint: Abdominal Pain Stated complaint: N/V Time Seen by Provider: 03/26/23 00:31 Source: patient Mode of arrival: EMS Limitations: no limitations History of Present Illness HPI Narrative: comes to the emergency room via ambulance complaining of nausea and vomiting. Patient admits to smoking marijuana. Patient has diffuse abdominal cramping, no significant pain. Patient states that he feels dehydrated. Denies using any other drugs. Related Data Previous Rx's Medication Instructions Recorded buprenorphine 8 mg-naloxone 2 mg 1 film sublingual DAILY #14 ea 06/14/22 sublingual film (Suboxone) naloxone 4 mg/actuation nasal 4 mg intranasal Q2M PRN opioid 06/14/22 spray (Narcan) overdose #2 ea ondansetron 4 mg disintegrating 4 mg PO Q6-8H PRN nausea and 01/12/23 tablet vomiting #7 tabs omeprazole 40 mg capsule,delayed 40 mg PO DAILY #14 caps 03/02/23 release ondansetron 4 mg disintegrating 4 mg PO Q8-12H PRN nausea and 03/02/23 tablet vomiting #7 tabs metoclopramide HCl 5 mg tablet 5 mg PO .b.i.d. PRN nausea and 03/26/23 (Reglan) vomiting #10 tabs Allergies Allergy/AdvReac Type Severity Reaction Status Date / Time No Known Allergies Allergy Verified 01/13/23 08:01 Review of Systems Review of Systems: Constitutional : No Weight loss, No Fever, No Chills, No Night Sweats, No Fatigue, No Malaise ENT/Mouth : No Hearing loss, No Ear Pain, No Nasal Congestion, No Sinus Pain, No Hoarseness, No sore throat, No Rhinorrhea, No Swallowing Difficulty Eyes: No Eye Pain, No Swelling, No Redness, No Foreign Body, No Discharge, No Vision Changes Cardiovascular : No Chest Pain, No SOB, No Dyspnea on Exertion, No Orthopnea, No Edema, No Palpitations Respiratory : No Cough, No Sputum, No Wheezing, No Smoke Exposure, No Dyspnea Gastrointestinal : Complaining of nausea vomiting, No Diarrhea, No Constipation, complaining of abdominal cramping, No Hematochezia, No Melena Genitourinary : no irregular bleeding, No Dysuria, No Urinary Frequency, No Hematuria, No Urinary Incontinence, No Urgency, No Flank Pain, No Urinary Flow Changes, No Hesitancy Musculoskeletal : No joint pain, No Myalgias, No Joint Swelling Skin : No Skin Lesions, No rash Neuro : No Weakness, No Numbness, No Paresthesias, No Loss of Consciousness, No Dizziness, No Headache Psych : No Anxiety/Panic, No Depression, No SI/HI/AH/VH, No Social Issues, Heme/Lymph: No Bruising, No Bleeding,No Lymphadenopathy Endocrine : No Polyuria, No Polydipsia, No Temperature Intolerance [facility] Past Medical History Medical History No known health problems Opiate addiction Opioid use disorder Social History Social History Alcohol intake: never Smoked in Last 30 Days: No Use of substances other than those prescribed or required for medical reasons: No Substance Use Type: Marijuana Advance Directives: No Advance Directives Information Provided: Yes Physical Exam Vital Signs: Vital Signs: Last Vital Signs Temp 98.4 F 03/26/23 01:02 Pulse 76 03/26/23 01:02 Resp 12 03/26/23 01:02 BP 120/76 03/26/23 01:02 Pulse Ox 100 03/26/23 01:02 O2 Del Method Room Air 03/26/23 01:02 BMI result Body Mass Index 27.4 Const: Other: Appearance: Alert. Oriented X3. No acute distress. Eyes: Pupils equal, round and reactive to light. ENT: Pharynx normal. Neck: Normal inspection. Neck supple. No lymph nodes noted. No crepitus CVS: Normal heart rate and rhythm. Pulses normal. Normal S1 and S2 Respiratory: No respiratory distress. Breath sounds normal. No Wheezing. No rales Abdomen: Soft and nontender. No rigidity. No distention. Skin: Skin warm and dry. Normal skin color. Normal skin turgor. Extremities: No lower extremity edema. No Lacerations. No Rash Neuro: Oriented X 3. No motor deficit. No sensory deficit. Moving all extremities. No slurred speech. CN 2 through 12 grossly intact Psych: calm, cooperative, normal affect Course Course Course Narrative: - patient receiving IV fluids, Reglan, Benadryl - on physical exam, patient did not have significant abdominal tenderness, imaging not indicated at this time. Medications Administered Discontinued Medications Generic Name Dose Route Start Last Admin Trade Name Kalen PRN Reason Stop Dose Admin Diphenhydramine HCl 50 mg 03/26/23 00:34 03/26/23 00:59 Diphenhydramine Hcl 50 Mg/Ml Vial IVPUSH 03/26/23 00:35 50 mg ONCE ONE Administration Sodium Chloride 1,000 mls @ 999 mls/hr 03/26/23 00:34 03/26/23 00:59 Ns IVCONT 03/26/23 01:34 999 mls/hr .Q1H1M ONE Administration Metoclopramide HCl 10 mg 03/26/23 00:34 03/26/23 00:59 Metoclopramide Hcl 10 Mg/2 Ml Vial IVPUSH 03/26/23 00:35 10 mg ONCE ONE Administration Medical Decision Making Medical Decision Making [facility] Narrative: - patient was p.o. challenged, feeling better, patient ready for discharge. Differential Diagnosis Differential Diagnoses: The differential diagnosis associated with the presentation includes ( Cyclical vomiting, gastroenteritis, gastritis) Lab Data [facility] Lab Attestation statement: I reviewed the patient's lab results. ( white blood cell count chronically elevated, labs at baseline) 03/26/23 00:10 03/26/23 00:10 Labs: Lab Results 03/26/23 03/26/23 03/26/23 Range/Units 00:10 00:10 00:10 WBC 11.5 H (4.8-10.8) X10*3/uL RBC 5.27 (4.60-5.80) X10*6/uL Hgb 15.3 (14.0-18.0) g/dl Hct 44.0 (42.0-52.0) % MCV 83.5 (80.0-98.0) fL MCH 29.0 (27.0-33.0) pg MCHC 34.8 (31.0-36.0) g/dl RDW 12.9 (11.0-16.0) % Plt Count 265 (160-400) X10*3/uL MPV 10.3 (9.4-12.4) fL Immature Gran % (Auto) 0.4 (0.0-0.4) % Neut % (Auto) 76.1 H (45-73) % Lymph % (Auto) 17.5 L (20-40) % [place] % (Auto) 5.7 (2-11) % Eos % (Auto) 0.0 (0-4) % Baso % (Auto) 0.3 (0-2) % Lymph # (Auto) 2.0 (1.2-4.9) X10*3/uL [place] # (Auto) 0.7 (0.1-1.2) X10*3/uL Eos # (Auto) 0.0 (0.0-0.4) X10*3/uL Baso # (Auto) 0.0 (0.0-0.2) X10*3/uL Abs Immat Gran (auto) 0.05 H (0.00-0.03) X10*3/uL Absolute Neuts (auto) 8.8 H (2.0-8.3) x10*3/uL Absolute Nucleated RBC 0.000 (0.0-0.012) X10*3/uL Nucleated RBC % (auto) 0.0 (0.0-0.2) /100WBC Sodium 138 (135-145) mmol/L Potassium 3.9 (3.3-5.1) mmol/L Chloride 102 (96-108) mmol/L Carbon Dioxide 21 L (22-29) mmol/L Anion Gap 19 (12-20) BUN 24 H (9-16) mg/dL Creatinine 0.81 (0.5-1.4) mg/dL Estim Creat Clear Calc 137.4 Estimated GFR > 60 Random Glucose 124 H (60-115) mg/dL Calcium 10.5 H (8.4-10.2) mg/dL Total Bilirubin 0.5 (0.0-1.0) mg/dL AST 33 (5-37) U/L ALT 85 H (0-40) U/L Alkaline Phosphatase 86 (39-117) U/L Total Protein 8.6 H (6.5-8.0) g/dL Albumin 5.0 (3.5-5.0) g/dL Lipase 6 L (8-78) U/L COVID-19 ([facility]) Negative (Negative) COVID-19 Clin Com See Note Critical Care Time Critical Care Time Critical Care Time: Yes Total Critical Care Time: 30 Attestation: I have personally provided critical care time. Time includes review of lab data, radiology results, discussion with consultants, and monitoring for potential decompensation. Intervention performed as documented. Discharge Plan Discharge Clinical Impression: Cyclical vomiting, Acute dehydration Patient Disposition: Home, Self-Care Instructions: Cyclic Vomiting Syndrome (ED) Additional Instructions: Please follow-up with your primary care physician tomorrow. If you have any worsening or new symptoms, please return to the emergency room or call 911 Prescriptions: New metoclopramide HCl [Reglan] 5 mg tablet 5 mg PO .b.i.d. PRN (Reason: nausea and vomiting) Qty: 10 0RF No Action ondansetron 4 mg tablet,disintegrating 4 mg PO Q6-8H PRN (Reason: nausea and vomiting) Qty: 7 0RF ondansetron 4 mg tablet,disintegrating 4 mg PO Q8-12H PRN (Reason: nausea and vomiting) Qty: 7 0RF omeprazole 40 mg capsule,delayed release(DR/EC) 40 mg PO DAILY Qty: 14 0RF buprenorphine-naloxone [Suboxone] 8-2 mg film 1 film sublingual DAILY Qty: 14 0RF naloxone [Narcan] 4 mg/actuation spray,non-aerosol 4 mg intranasal Q2M PRN (Reason: opioid overdose) Qty: 2 0RF Rx Instructions: spray 1 dose into ONE nostril; alternate nostrils w each dose until help arrives
[2023-03-26] MEDS: diphenhydrAMINE HCL 50 MG/ML VIAL IVPUSH (00:59)
[2023-03-26] MEDS: Metoclopramide HCl 10 MG/2 ML VIAL IVPUSH (00:59)
[2023-03-26] MEDS: 0.9 % Sodium Chloride 1,000 ML 999 ML IVCONT (00:59)
[2023-03-26 01:02] VITALS: BP 120/76; PULSE 76; RESP 12; TEMP 36.9; O2SAT 100
[2023-03-26 02:30] VITALS: BP 132/93; PULSE 77; RESP 12; TEMP 37; O2SAT 98
== END 2023-03-26 02:34 | disposition home or self-care (01) ==
PROVIDERS: Emergency Provider Emergency Medicine
DX: E86.0 Dehydration (principal); R11.2 Nausea with vomiting, unspecified; Z20.822 Contact with and (suspected) exposure to COVID-19; Z20.828 Contact with and (suspected) exposure to other viral communicable diseases; Z79.899 Other long term (current) drug therapy
CPT/HCPCS: 36415; 80053; 83690; 85025; 87635; 96361; 96374; 96375; 99284; 99285; J1200; J2765

== ENCOUNTER 2023-04-27 22:12 | Emergency (ER) | payer MEDICAID, SELFPAY ==
[2023-04-27 22:19] VITALS: BP 124/81; PULSE 91; RESP 18; TEMP 37.2; O2SAT 99; BMI 27.4
[2023-04-27 23:35] VITALS: BP 128/76; PULSE 66; RESP 12; TEMP 37
--- NOTE | 2023-04-27 23:36 | PC.NURSE ---
Pt aox4 resting at the bedside. No apparent distress noted. VSS. Reports abscess on the inner thight of the right leg x 3-4 days ago. Pain 05/04. Pending physician shaheed.
--- NOTE | 2023-04-28 00:05 | PC.NURSE ---
Pt not at the bedside. Left without being seen.
== END 2023-04-28 00:08 | disposition left against medical advice (07) ==
PROVIDERS: Emergency Provider Emergency Medicine
DX: M79.604 Pain in right leg (principal)
CPT/HCPCS: 99282; 99284

== ENCOUNTER 2023-12-20 13:39 | Emergency (ER) | payer MEDICAID, SELFPAY ==
[2023-12-20 13:47] VITALS: BP 133/92; PULSE 81; RESP 16; TEMP 36.6; O2SAT 100; BMI 21.8
--- NOTE | 2023-12-20 13:47 | ED_ITS ---
HPI - General Adult General Chief complaint: Nausea/Vomiting/Diarrhea Stated complaint: dehydration has't eaten 5 days Time Seen by Provider: 12/20/23 14:45 Source: patient Mode of arrival: ambulatory History of Present Illness HPI narrative: 23-year-old male who was [facility] and denies detoxing from heroin, denies any withdrawal symptoms but states he has been having some nausea but has not been feeling well and states that his appetite has decreased but he has been able to drink liquids. Related Data Previous Rx's ?Medication ?Instructions ?Recorded buprenorphine 8 mg-naloxone 2 mg 1 film sublingual DAILY #14 ea 06/14/22 sublingual film (Suboxone) naloxone 4 mg/actuation nasal 4 mg intranasal Q2M PRN opioid 06/14/22 spray (Narcan) overdose #2 ea ondansetron 4 mg disintegrating 4 mg PO Q6-8H PRN nausea and 01/12/23 tablet vomiting #7 tabs omeprazole 40 mg capsule,delayed 40 mg PO DAILY #14 caps 03/02/23 release ondansetron 4 mg disintegrating 4 mg PO Q8-12H PRN nausea and 03/02/23 tablet vomiting #7 tabs metoclopramide HCl 5 mg tablet 5 mg PO .b.i.d. PRN nausea and 03/26/23 (Reglan) vomiting #10 tabs ondansetron 4 mg disintegrating 4 mg PO Q8H PRN nausea and 12/20/23 tablet vomiting 4 days #7 tabs Allergies Allergy/AdvReac Type Severity Reaction Status Date / Time No Known Allergies Allergy Verified 12/20/23 13:48 Review of Systems 2 Review of Systems: Pertinent positives and negatives as stated in HPI [facility] Past Medical History Source: nursing notes reviewed Medical History Opioid use disorder Opiate addiction No known health problems Social History Social History Alcohol intake: never Substance Use Type: Marijuana Physical Exam ED Vital Signs: Vital Signs - 24 hr 12/20/23 13:47 12/20/23 16:37 Temperature 98 F 98.0 F Pulse Rate 81 64 Respiratory Rate 16 16 Blood Pressure 133/92 H 116/84 Pulse Oximetry 100 98 Oxygen Delivery Method Room Air Room Air BMI result Body Mass Index 21.8 VITAL SIGNS: Reviewed. GENERAL: Well developed, well nourished, in no acute distress. HEAD: Normocephalic/atraumatic EYES: PERRLA, EOMI EARS: Ext canals without abnormality, TMs non-bulging and non-erythematous NOSE: Nares patent bilateral OROPHARYNX: no oral lesions noted, posterior pharynx clear and non-erythematous without noted tonsillar enlargement/erythema/exudates, oral mucosa appears moist NECK: Supple, no adenopathy LUNGS: Normal breath sounds. No adventitious sounds or accessory muscle use. SpO2<98> CARDIOVASCULAR: Regular rate and rhythm without noted murmurs ABDOMEN: Soft, non-tender, non-distended with bowel sounds. MUSCULOSKELETAL: No tenderness, deformities, or effusions noted on gross inspection. EXTREMITIES: No cyanosis, clubbing or edema. SKIN: Inspection of the skin reveals no rashes NEUROLOGIC: Alert and oriented x 4. Strength and sensation to light touch were grossly intact x 4. Course Course Course Narrative: RME performed by Lucinda Souza PA-C. Patient is a 23 year old assigned male at presenting to the emergency department with possible opiate withdrawal. Patient states that he feels generally unwell and unable to eat. Patient states that he has been off of heroin for 6 days and before that was using a bundle and a half. Patient states that he is now on suboxone. Detailed physical exam and review of systems are deferred to the outreach clinician. Labs and swabs ordered. Patient placed back in the waiting room pending room availability and results. Medications Administered Discontinued Medications Generic Name Dose Route Start Last Admin Trade Name Minaq PRN Reason Stop Dose Admin Ondansetron HCl 4 mg 12/20/23 16:24 12/20/23 16:38 Ondansetron Odt 4 Mg Tab.Rapdis TRANSLINGU 12/20/23 16:25 4 mg ONCE ONE Administration Medical Decision Making Medical Decision Making MDM Narrative: 23-year-old male with history and clinical presentation likely secondary to medication side effect. I do not suspect acute infection or medication withdrawal. I reviewed all questions and hematologic indices are negative for leukocytosis/anemia/thrombocytopenia. Chemistry indices demonstrate a mild low potassium level but otherwise no QUYEN or liver enzyme derangements. Urinalysis is negative for UTI or hematuria. UDS demonstrates multiple substances in the urine however this may reflect patient's treatment program while he was in [facility]. Viral testing is negative for influenza/RSV/COVID-19. All results and findings discussed with the patient at bedside. He was otherwise discharged with a script for Joe. Differential Diagnosis Differential Diagnoses: The differential diagnosis associated with the presentation includes Please see the discussion above Admission/Observation Consideration of admission/observation: Escalation of care including admission/observation considered Please see the discussion above Lab Data MDM Lab Attestation statement: I reviewed the patient's lab results. Please see the discussion above 12/20/23 14:06 12/20/23 14:06 Labs: Lab Results 12/20/23 12/20/23 Range/Units 14:06 15:38 WBC 10.3 (4.8-10.8) X10*3/uL RBC 4.97 (4.60-5.80) X10*6/uL Hgb 14.7 (14.0-18.0) g/dl Hct 40.9 L (42.0-52.0) % MCV 82.3 (80.0-98.0) fL MCH 29.6 (27.0-33.0) pg MCHC 35.9 (31.0-36.0) g/dl RDW 12.6 (11.0-16.0) % Plt Count 239 (160-400) X10*3/uL MPV 10.3 (9.4-12.4) fL Immature Gran % (Auto) 0.2 (0.0-0.4) % Neut % (Auto) 49.5 (45-73) % Lymph % (Auto) 41.1 H (20-40) % [place] % (Auto) 8.5 (2-11) % Eos % (Auto) 0.4 (0-4) % Baso % (Auto) 0.3 (0-2) % Lymph # (Auto) 4.2 (1.2-4.9) X10*3/uL [place] # (Auto) 0.9 (0.1-1.2) X10*3/uL Eos # (Auto) 0.0 (0.0-0.4) X10*3/uL Baso # (Auto) 0.0 (0.0-0.2) X10*3/uL Abs Immat Gran (auto) 0.02 (0.00-0.03) X10*3/uL Absolute Neuts (auto) 5.1 (2.0-8.3) x10*3/uL Absolute Nucleated RBC 0.000 (0.0-0.012) X10*3/uL Nucleated RBC % (auto) 0.0 (0.0-0.2) /100WBC Sodium 144 (135-145) mmol/L Potassium 3.2 L (3.3-5.1) mmol/L Chloride 106 (96-108) mmol/L Carbon Dioxide 26 (22-29) mmol/L Anion Gap 15 (12-20) BUN 17 H (9-16) mg/dL Creatinine 0.87 (0.5-1.4) mg/dL Estim Creat Clear Calc 112.4 Estimated GFR > 60 Random Glucose 120 H (60-115) mg/dL Calcium 10.1 (8.4-10.2) mg/dL Magnesium 1.9 (1.6-2.6) mg/dL Total Bilirubin 0.7 (0.0-1.0) mg/dL AST 16 (5-37) U/L ALT 9 (0-40) U/L Alkaline Phosphatase 81 (39-117) U/L Total Protein 7.5 (6.5-8.0) g/dL Albumin 4.6 (3.5-5.0) g/dL Urine Color Dark Yellow Urine Appearance Clear Urine pH 6.0 (5.0-9.0) Ur Specific [place] 1.025 (1.005-1.025) Urine Protein 30 (1+) H (Neg-Trace) mg/dL Urine Glucose (UA) Negative (Negative) mg/dL Urine Ketones 80 (Negative) mg/dL Urine Blood Negative (Negative) Urine Nitrite Negative (Negative) Ur Leukocyte Esterase Negative (Negative) Urine RBC 0-2 (0-2) /HPF Urine WBC 0-5 (0-5) /HPF Ur Squamous Epith Cells 0-2 (0-2) /HPF Calcium Oxalate Crystal Present Urine Bacteria None Seen (None Seen) Hyaline Casts 3-5 (0-2) /LPF Urine Opiates Screen Not Detected (Not Detect) Ur Buprenorphine Scrn Positive H (Not Detect) ng/mL Ur Oxycodone Screen Not Detected (Not Detect) ng/mL Urine Methadone Screen Positive H (Not Detect) ng/mL Urine Fentanyl Screen POSITIVE H (Not Detect) Ur Barbiturates Screen Not Detected (Not Detect) Ur Phencyclidine Scrn Not Detected (Not Detect) Ur Amphetamines Screen Not Detected (Not Detect) U Benzodiazepines Scrn POSITIVE H (Not Detect) Urine Cocaine Screen Not Detected (Not Detect) U Marijuana (THC) Screen POSITIVE H (Not Detect) COVID-19 (DIEUDONNE) Negative (Negative) COVID-19 Clin Com See Note Influenza Type A (KATTY) Negative (Negative) Influenza Type A (PCR) NEGATIVE (Negative) Influenza Type B (KATTY) Negative (Negative) Influenza Type B (PCR) NEGATIVE (Negative) Influenza A & B Note See Note RSV RNA Qual (PCR) NEGATIVE (Negative) SARS-CoV-2 RNA (RT-PCR) NEGATIVE (Negative) Social Determinants Patient?s care significantly limited by Social Determinants of Health including: Alcoholism and drug addiction in family Critical Care Time Critical Care Time Critical Care Time: Yes Total Critical Care Time: 30 Attestation: I personally attest to this time spent taking care of the patient. Discharge Plan Discharge Clinical Impression: Poor appetite Patient Disposition: Home, Self-Care Additional Instructions: You are being discharged with Zofran, which is an antinausea medication and will assist in you being able to stay well hydrated, your decrease in appetite may be due to medication side effect as your workup today is otherwise negative. Prescriptions: New ondansetron 4 mg tablet,disintegrating 4 mg PO Q8H PRN (Reason: nausea and vomiting) 4 Days Qty: 7 0RF No Action ondansetron 4 mg tablet,disintegrating 4 mg PO Q6-8H PRN (Reason: nausea and vomiting) Qty: 7 0RF ondansetron 4 mg tablet,disintegrating 4 mg PO Q8-12H PRN (Reason: nausea and vomiting) Qty: 7 0RF omeprazole 40 mg capsule,delayed release(DR/EC) 40 mg PO DAILY Qty: 14 0RF metoclopramide HCl [Reglan] 5 mg tablet 5 mg PO .b.i.d. PRN (Reason: nausea and vomiting) Qty: 10 0RF buprenorphine-naloxone [Suboxone] 8-2 mg film 1 film sublingual DAILY Qty: 14 0RF naloxone [Narcan] 4 mg/actuation spray,non-aerosol 4 mg intranasal Q2M PRN (Reason: opioid overdose) Qty: 2 0RF Rx Instructions: spray 1 dose into ONE nostril; alternate nostrils w each dose until help arrives Print Language: Panamanian
[2023-12-20 14:10] LABS: MANUAL DIFF FLAG NO
[2023-12-20 14:14] LABS: Basophils Percent Auto 0.3 % (0-2); Eosinophils Percent Auto 0.4 % (0-4); Hematocrit 40.9 % (42.0-52.0); Hemoglobin 14.7 g/dl (14.0-18.0); Imm Gran Abs Auto 0.02 X10*3/uL (0.00-0.03); Imm Gran Pct Auto 0.2 % (0.0-0.4); Lymphocytes Absolute Auto 4.2 X10*3/uL (1.2-4.9); Lymphocytes Percent Auto 41.1 % (20-40); Mean Corpuscular HGB Conc 35.9 g/dl (31.0-36.0); Mean Corpuscular Hemoglobin 29.6 pg (27.0-33.0); Mean Corpuscular Volume 82.3 fL (80.0-98.0); Mean Platelet Volume 10.3 fL (9.4-12.4); Monocytes Absolute Auto 0.9 X10*3/uL (0.1-1.2); Monocytes Percent Auto 8.5 % (2-11); Neutrophils Absolute Auto 5.1 x10*3/uL (2.0-8.3); Neutrophils Percent Auto 49.5 % (45-73); Platelet Count 239 X10*3/uL (160-400); Red Blood Count 4.97 X10*6/uL (4.60-5.80); Red Cell Distribution Width 12.6 % (11.0-16.0); White Blood Count 10.3 X10*3/uL (4.8-10.8)
[2023-12-20 14:35] LABS: Alanine Aminotransferase 9 U/L (0-40); Albumin Level 4.6 g/dL (3.5-5.0); Alkaline Phosphatase 81 U/L (39-117); Anion Gap 15 (12-20); Aspartate Amino Transferase 16 U/L (5-37); Bilirubin Total 0.7 mg/dL (0.0-1.0); Blood Urea Nitrogen 17 mg/dL (9-16); Calcium 10.1 mg/dL (8.4-10.2); Carbon Dioxide 26 mmol/L (22-29); Chloride 106 mmol/L (96-108); Creatinine Clr Calc Pharmacy 112.4; Estimated Glomerular Filt Rate > 60; Glucose Random 120 mg/dL (60-115); Magnesium 1.9 mg/dL (1.6-2.6); Potassium 3.2 mmol/L (3.3-5.1); Sodium 144 mmol/L (135-145); Total Protein 7.5 g/dL (6.5-8.0)
[2023-12-20 14:49] LABS: Influenza A PCR NEGATIVE (Negative); Influenza B PCR NEGATIVE (Negative); Resp Syncy Virus RNA Qual PCR NEGATIVE (Negative); SARS COV2 PCR INHOUSE NEGATIVE (Negative)
[2023-12-20 16:02] LABS: Appearance Urine Clear; Color Urine Dark Yellow; Glucose Urine UA Negative (Negative); Leukocyte Esterase Urine Negative (Negative); Nitrite Urine Negative (Negative); Specific Gravity - Urine 1.025 (1.005-1.025); UMIC TRIGGER UACC YES; Urine Blood Negative (Negative); Urine Ketones 80 mg/dL (Negative); Urine Protein 30 (1+) mg/dL (Neg-Trace)
[2023-12-20 16:13] LABS: Bacteria Urine None Seen (None Seen); Calcium Oxalate Crystals Urine Present; RBC Urine 0-2 /HPF (0-2); Squamous Epithelial Cell Urine 0-2 /HPF (0-2); WBC Urine 0-5 /HPF (0-5)
[2023-12-20 16:15] LABS: Amphetamine Screen Urine Not Detected (Not Detect); Barbiturates, Urine Not Detected (Not Detect); Benzodiazepines Screen Urine POSITIVE (Not Detect); Buprenorphine Scr Positive (Not Detect); Cannabinoid Screen Urine POSITIVE (Not Detect); Cocaine Screen Urine Not Detected (Not Detect); Fentanyl, urine POSITIVE (Not Detect); Methadone Screen, Urine Positive (Not Detect); Opiate Screen Urine Not Detected (Not Detect); Oxycodone Screen Urine Not Detected (Not Detect); Phencyclidine Screen Urine Not Detected (Not Detect)
[2023-12-20 16:24] LABS: COVID-19 Test Negative (Negative); IDNOW Serial# 08D9AD1C; IDNOW Serial# 152EDE1D; Influenza A Negative (Negative); Influenza B2 Negative (Negative)
[2023-12-20 16:37] VITALS: BP 116/84; PULSE 64; RESP 16; TEMP 36.7; O2SAT 98
[2023-12-20] MEDS: Ondansetron ODT 4 MG TAB.RAPDIS TRANSLINGU (16:38)
[2023-12-20] MEDS: Potassium Chloride ER 20 MEQ TAB.ER.PRT 60 MEQ PO (17:06)
[2023-12-20 17:09] VITALS: BP 116/84; PULSE 64; RESP 16; TEMP 36.7; O2SAT 98
== END 2023-12-20 17:10 | disposition home or self-care (01) ==
PROVIDERS: Physician Assistant Medical; Emergency Provider Student in an Organized Health Care Education/Training Program
DX: R63.0 Anorexia (principal); F11.20 Opioid dependence, uncomplicated; Z11.52 Encounter for screening for COVID-19
CPT/HCPCS: 0241U; 80053; 80307; 81001; 81003; 83735; 85025; 87502; 87635; 99283; 99284

== ENCOUNTER 2023-12-29 13:33 | Outpatient (AMB) | payer MEDICAID, SELFPAY ==
--- NOTE | 2023-12-29 13:41 | A.OFFVISCC_ITS ---
Vital Signs 12/29/23 13:43 BP 122/80 Blood Pressure Location Lt brachial Position Sitting Pulse 68 Pulse Source Pulse Oximeter Pulse Oximetry (%) 97 Oxygen Delivery Method Room Air Intake Visit Reasons: Restart Allergies No Known Allergies Allergy (Verified 12/29/23 13:43) HPI HPI Restart: Details: Patient presents as a MAT restart Last seen by this office in May 2022 States he went on a cruise shortly after his last visit, lost his sub films, and subsequently relapsed States he was taking pills but progressed to dope in Jun 2022- using intranasally He went to [facility] approx 2 weeks ago where he was able to detox and received sublocade injection Reports he needed an extra 8mg /day film due to breakthrough withdrawal symptoms He has been to detox 3 times in the past few years Overdosed x 3 in last 2 years, both times requiring narcan and ED transport Has no outpatient psych prescribers or therapy, but feels he needs due to anxiety Would like referral for [facility] Denies any chronic medical conditions PFSH Medical History Opioid use disorder Opiate addiction No known health problems Social History Alcohol intake: never Substance Use Type: Marijuana Review of Systems Const Reports as per HPI Physical Exam Vital Signs: Last Vital Signs Pulse 68 12/29/23 13:43 BP 122/80 12/29/23 13:43 Pulse Ox 97 12/29/23 13:43 Oxygen Delivery Method Room Air 12/29/23 13:43 Const General: cooperative and no acute distress Resp Effort & Inspection: normal respiratory effort Psych Appearance: grossly normal Mental Status: mental status grossly normal Speech and movement: Normal speech and movement present Affect: normal affect Attitude: cooperative Results AMB 14 Panel Urine Drug Screen Urine Marijuana (THC) Positive Last Edit by Krystal Naidu CMA on 12/29/23 13 :44 Urine Cocaine Negative Last Edit by Krystal Naidu CMA on 12/29/23 13:44 Urine Morphine Negative Last Edit by Krystal Naidu CMA on 12/29/23 13:44 Urine Methamphetamine Negative Last Edit by Krystal Naidu CMA on 12/29/23 13 :44 Urine Amphetamine Negative Last Edit by Krystal Naidu CMA on 12/29/23 13:44 Urine Benzodiazepine Positive Last Edit by Krystal Naidu CMA on 12/29/23 13: 44 Urine Barbiturates Negative Last Edit by Krystal Naidu CMA on 12/29/23 13:44 Urine Methadone Negative Last Edit by Krystal Naidu CMA on 12/29/23 13:44 Urine Buprenorphine Positive Last Edit by Krystal Naidu CMA on 12/29/23 13:4 4 Urine Tricyclic Antidepressant Negative Last Edit by Krystal Naidu CMA on 12/29/23 13:44 Urine MDMA Negative Last Edit by Krystal Naidu CMA on 12/29/23 13:44 Urine Oxycodone Negative Last Edit by Krystal Naidu CMA on 12/29/23 13:44 Urine Phencyclidine Negative Last Edit by Krystal Naidu CMA on 12/29/23 13:4 4 Urine Propoxyphene Negative Last Edit by Krystal Naidu CMA on 12/29/23 13:44 Results Reviewed Results Reviewed: Laboratory Last Values POC Urine Buprenorphine Positive 12/29/23 13:37 POC Urine Morphine Negative 12/29/23 13:37 POC Urine Oxycodone Negative 12/29/23 13:37 POC Urine Methadone Negative 12/29/23 13:37 POC Urine Propoxyphene Negative 12/29/23 13:37 POC Urine Barbiturates Negative 12/29/23 13:37 POC U Tricyclic Antidpr Negative 12/29/23 13:37 POC Urine PCP Negative 12/29/23 13:37 POC Ur Amphetamines Negative 12/29/23 13:37 POC Ur Methamphetamine Negative 12/29/23 13:37 POC Urine MDMA Negative 12/29/23 13:37 POC Ur Benzodiazepine Positive 12/29/23 13:37 POC Urine Cocaine Negative 12/29/23 13:37 POC Ur Marijuana (THC) Positive 12/29/23 13:37 Assessment & Plan Assessment & Plan (1) Opioid use disorder: Code(s): F11.99 - Opioid use, unspecified with unspecified opioid-induced disorder Category: Medical Plan: -Mass pat reviewed -Suboxone bridge script sent in to pt pharmacy -Pt declined narcan, states he has some at home -Clonidine ordered for symptoms of anxiety, pt reports he took at [facility] with good effect -Sublocade injection script sent to specialty pharmacy -Follow up 2 weeks Orders: Orders AMB 14 Panel Urine Drug Screen Today Z51.81 - Encounter for therapeutic drug level monitoring Medications: New buprenorphine ER (Sublocade) 300 mg (1.5 mL) subcut ONCE 1.5 mL 1RF clonidine HCl 0.1 mg PO BID 30 tabs 0RF Refilled buprenorphine-naloxone 8-2 mg (Suboxone) 1 film sublingual DAILY 14 ea 0RF
[2023-12-29 13:43] VITALS: BP 122/80; PULSE 68; O2SAT 97
== END 2023-12-29 14:11 | disposition home or self-care (01) ==
PROVIDERS: Visit Provider Nurse Practitioner Family
DX: Z51.81 Encounter for therapeutic drug level monitoring (principal); F11.99 Opioid use, unspecified with unspecified opioid-induced disorder
CPT/HCPCS: 99204

== ENCOUNTER → 2023-12-29 13:33 | Outpatient (BNVA) | payer MEDICAID, SELFPAY | PROVIDERS: Visit Provider Nurse Practitioner Family | DX: Z51.81 Encounter for therapeutic drug level monitoring (principal); F11.20 Opioid dependence, uncomplicated | CPT/HCPCS: 80305; 99212 ==

== ENCOUNTER 2024-01-14 14:20 | Outpatient (AMB) | payer MEDICAID, SELFPAY ==
[2024-01-14 14:20] VITALS: BP 108/70; PULSE 79; O2SAT 98
--- NOTE | 2024-01-14 14:20 | MHC.AM.SUB ---
Vital Signs 01/14/24 14:20 BP 108/70 Blood Pressure Location Lt brachial Position Sitting Pulse 79 Pulse Source Pulse Oximeter Pulse Oximetry (%) 98 Oxygen Delivery Method Room Air Intake Visit Reasons: MAT Allergies No Known Allergies Allergy (Verified 12/29/23 13:43) HPI HPI MAT: Details: Patient presents for first sublocade injection with this clinic Has received one injection prior at [facility] Detox Tolerated injection well Has no questions or concerns today [facility] Medical History Opioid use disorder Opiate addiction No known health problems Social History Alcohol intake: never Substance Use Type: Marijuana Review of Systems Const Reports as per HPI Physical Exam Vital Signs: Last Vital Signs Pulse 79 01/14/24 14:20 BP 108/70 01/14/24 14:20 Pulse Ox 98 01/14/24 14:20 Oxygen Delivery Method Room Air 01/14/24 14:20 Const General: cooperative and no acute distress Resp Effort & Inspection: normal respiratory effort and able to speak in complete sentences Psych Appearance: grossly normal Mental Status: mental status grossly normal Speech and movement: Normal speech and movement present Affect: normal affect Attitude: cooperative Thought process: Normal thought process present Office Meds Sublocade 300 mg/1.5 mL solution,extended release subcutaneous syringe Performing Provider: Tressa Camara NP Performing Location: [facility] Administered by: Brianne Arambula RN on 01/15/24 11:39 Dose Route Admin Location Dispensed Lot Number Expiration Date [facility] Emergency Medical Technician Basic 300 mg subcut LLQ 1.5 mL [id number] 01/23/25 [address]-4 [employer] Assessment & Plan Assessment & Plan (1) Opioid use disorder: Code(s): F11.99 - Opioid use, unspecified with unspecified opioid-induced disorder Category: Medical Plan: -HERB obtained to request pt info from [place] -Tolerating injection well -Follow up 4 weeks Orders: Orders AMB Buprenorphine Injection - Patient Supplied 01/14/24 F11.99 - Opioid use, unspecified with unspecified opioid-induced disorder Medications: Refilled clonidine HCl 0.1 mg PO BID 60 tabs 0RF
== END 2024-01-14 14:48 | disposition home or self-care (01) ==
PROVIDERS: Visit Provider Nurse Practitioner Family
DX: F11.99 Opioid use, unspecified with unspecified opioid-induced disorder (principal)
CPT/HCPCS: 99213

== ENCOUNTER → 2024-01-14 14:20 | Outpatient (BNVA) | payer MEDICAID, SELFPAY | PROVIDERS: Visit Provider Nurse Practitioner Family | DX: F11.20 Opioid dependence, uncomplicated (principal); Z79.899 Other long term (current) drug therapy; Z51.81 Encounter for therapeutic drug level monitoring | CPT/HCPCS: 96372; 99212; Q9992 ==

== ENCOUNTER 2024-02-16 13:22 | Outpatient (AMB) | payer MEDICAID, SELFPAY ==
--- NOTE | 2024-02-16 13:28 | AM.OFFVISNUR ---
Intake Vital Signs 02/16/24 13:42 BP 130/70 Blood Pressure Location Rt brachial Position Sitting Respiration 20 Pulse 47 L Pulse Source Pulse Oximeter Pulse Oximetry (%) 98 Intake Visit Reasons: Sub Inj Allergies No Known Allergies Allergy (Verified 12/29/23 13:43) Nursing Note Patient here today in clinic for injection. Pt is alert and oriented x4, in good spirits, speaking in clear/full sentences. Denies any complications with previous injection. States he went on a cruise and that is why he missed his last appt, he states he has no cravings, and doing well in recovery. Office Meds Sublocade 300 mg/1.5 mL solution,extended release subcutaneous syringe Performing Provider: Judi Kline CNP Performing Location: [facility] Administered by: Brianne Arambula RN on 02/16/24 13:44 Dose Route Admin Location Dispensed Lot Number Expiration Date [facility] Public Health Inspector 300 mg subcut RLQ 1.5 mL [id number] 05/25/25 [address]-9 [employer] Coding Assessment & Plan Assessment & Plan Orders: Orders AMB Buprenorphine Injection - Patient Supplied Today F11.99 - Opioid use, unspecified with unspecified opioid-induced disorder Medications: New Sublocade ER (buprenorphine) 300 mg (1.5 mL) subcut ONCE 1.5 mL 0RF NS F11.99 - Opioid use, unspecified with unspecified opioid-induced disorder
[2024-02-16 13:42] VITALS: BP 130/70; PULSE 47; RESP 20; O2SAT 98
== END 2024-02-16 13:44 | disposition home or self-care (01) ==
DX: F11.99 Opioid use, unspecified with unspecified opioid-induced disorder (principal)

== ENCOUNTER → 2024-02-16 13:22 | Outpatient (BNVA) | payer MEDICAID, SELFPAY | DX: F11.99 Opioid use, unspecified with unspecified opioid-induced disorder (principal) | CPT/HCPCS: 96372; Q9992 ==

== ENCOUNTER 2024-03-18 11:12 | Outpatient (AMB) | payer MEDICAID, SELFPAY ==
--- NOTE | 2024-03-18 11:13 | AM.OFFVISNUR ---
Intake Visit Reasons: MAT/Sub injection Allergies No Known Allergies Allergy (Verified 12/29/23 13:43) Nursing Note Patient Presents for Sublocade Injection. Smiling, alert and oriented x4. Current Dose is 300mg . Given in the with no noted or stated complications. Denies any issues with previous injection. Denies symptoms, and denies any break through cravings. Last appt with provider was in October , will follow up with RN in 4 weeks for injection. Will need to see provider for check in next visit as well . At next visit Patent will meet with Judi MURO to talk about possibly switching to Brixadi, due to patients low body fat, and injection being painful at times. Office Meds Sublocade 300 mg/1.5 mL solution,extended release subcutaneous syringe Performing Provider: Judi Kline CNP Performing Location: [facility] Administered by: Brianne Arambula RN on 03/18/24 11:20 Dose Route Admin Location Dispensed Lot Number Expiration Date [facility] Travel Pta 300 mg subcut LLQ 1.5 mL [id number] 05/25/25 [address]-9 [employer]. Assessment & Plan Assessment & Plan Orders: Orders AMB Buprenorphine Injection - Patient Supplied Today F11.99 - Opioid use, unspecified with unspecified opioid-induced disorder Medications: New Sublocade ER (buprenorphine) 300 mg (1.5 mL) subcut ONCE 1.5 mL 0RF NS F11.99 - Opioid use, unspecified with unspecified opioid-induced disorder
== END 2024-03-18 11:44 | disposition home or self-care (01) ==
DX: F11.99 Opioid use, unspecified with unspecified opioid-induced disorder (principal)

== ENCOUNTER → 2024-03-18 11:12 | Outpatient (BNVA) | payer MEDICAID, SELFPAY | DX: F11.20 Opioid dependence, uncomplicated (principal); Z79.899 Other long term (current) drug therapy | CPT/HCPCS: 96372; Q9992 ==